=== PATIENT | male | born 1945 | race Caucasian/White ===

== ENCOUNTER → 2017-10-21 | Outpatient (REF) | payer MEDICARE ==
[~2017-10-21] MED LIST: ALB18R INH; CYCL-430 FT; DILT300C17 PO; DYA PO; HYDR-2966 PO; LEVO25TA56; LEVO75TA73 PO; LEVO88TA43 PO; METO-253 PO; METO200T33 PO; METO50TA19 PO; OMEP40CA45 PO; OXYC-866 FT
== END ==
LOC: ZZSENDIN 19:11
PROVIDERS: ATTEND Urology
DX: R97.20 Elevated prostate specific antigen [PSA] (principal)
CPT/HCPCS: 81313